=== PATIENT | female | born 1980 | race African-American/Black ===

== ENCOUNTER 2024-03-11 08:30 | Emergency (ER) | payer BC | END 2024-03-11 12:38 | disposition home or self-care (01) | LOC: ERS 08:30 | DX: S80.12XA Contusion of left lower leg, initial encounter (principal); L03.116 Cellulitis of left lower limb; I10 Essential (primary) hypertension; W21.07XA Struck by softball, initial encounter; Y93.89 Activity, other specified; Z79.899 Other long term (current) drug therapy ==